=== PATIENT | male | born 1990 | race Caucasian/White ===

== ENCOUNTER 2017-04-07 01:18 | Emergency (ER) | payer SELFPAY ==
[2017-04-07 01:37] VITALS: BP 134/85
[2017-04-07] MEDS ORDERED: Tetan/Diph/Pertus SYR(Tdap)* 0.5 ML SYR(BOOSTRIX) use SYR IM ONE (01:41)
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
[2017-04-07] MEDS ORDERED: Amoxicillin/Clavulanate TAB* 875 MG PO ONE (03:12)
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
--- NOTE | 2017-04-07 07:38 | RAD ---
HISTORY: Right forearm pain COMPARISONS: None VIEWS: 2, Frontal and lateral views of the right forearm FINDINGS: BONE DENSITY: Normal. BONES: There is no displaced fracture. JOINTS: There is no arthropathy. ALIGNMENT: There is no dislocation. SOFT TISSUES: Unremarkable. OTHER FINDINGS: None. IMPRESSION: NO ACUTE OSSEOUS INJURY. IF SYMPTOMS PERSIST, RECOMMEND REPEAT IMAGING.
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
== END 2017-04-07 03:20 | disposition home or self-care (01) ==
LOC: ED 01:18
DX: S01.511A Laceration without foreign body of lip, initial encounter (principal); M79.631 Pain in right forearm; S09.90XA Unspecified injury of head, initial encounter; Y09 Assault by unspecified means; Y92.9 Unspecified place or not applicable; Y99.9 Unspecified external cause status
CPT/HCPCS: 70450; 70486; 90471; 90715; 99282; A9270-GY